=== PATIENT | female | born 1980 | race African-American/Black ===

== ENCOUNTER 2017-12-02 18:08 | Inpatient (IN) | payer MEDICAID, SELFPAY ==
[2017-12-02 18:09] VITALS: BP 152/89; PULSE 109; RESP 16; TEMP 36.9; O2SAT 100; BMI 22.1
--- NOTE | 2017-12-02 18:29 | CT_ITS ---
STUDY: CT ABDOMEN AND PELVIS WITH CONTRAST REASON FOR EXAM: Female, 37 years old. Abdominal pain RADIATION DOSAGE (If Supplied By Facility): CTDIvol = ( 10.06 ) mGy, DLP = ( 657.31 ) mGycm TECHNIQUE: Transaxial images were obtained from the dome of the diaphragm to the symphysis pubis without oral contrast. 100ML ml of Isovue 300 contrast was administered. Sagittal and coronal images were reconstructed. Individualized dose optimization techniques were used for this CT. COMPARISON: None. FINDINGS: The visualized lung bases are unremarkable. The visualized portions of the heart are within normal limits. Normal liver. Normal gallbladder and extrahepatic biliary system. Normal spleen. Normal pancreas. Normal bilateral adrenal glands. Normal right kidney. Normal left kidney. Normal visualized stomach. Normal small intestine. There is thickening of the colonic wall and stranding of the mesentery. There is a 4 cm peripherally enhancing fluid collection which may represent an abscess or giant diverticulum. There is stranding of the mesenteric fat consistent with acute inflammation. There is no free air or free fluid. Oral contrast is noted within the distal small bowel and right colon. The appendix is visualized and appears normal. Normal abdominal aorta. Normal inferior vena cava. Normal retroperitoneum. Normal urinary bladder. There is an IUD in the uterus. There is a small umbilical hernia containing fat. Normal osseous structures. CT/Abdomen/Pelvis WITH Contrast IMPRESSION: Probable Pericolonic abscess with acute inflammatory changes. Prompt surgical consultation recommended. N.B. : The above information has been verbally conveyed by Mario Romero MD to , Covering Physician, on 12/02/2017 20:52:44 (ET). Electronically Signed: Mario Romero MD at 20:45 EDT , Service support , N.B. : The above information has been verbally conveyed by Mario Romero MD to , Covering Physician, on 12/02/2017 20:52:44 (ET).
[2017-12-02] MEDS: 0.9% Normal Saline 1,000 ML 125 ML IV (18:50)
[2017-12-02 18:59] LABS: Absolute Lymphocyte Count 2.36 X10^3/ul (0.83-4.51); Absolute Neutrophil Count 11.7 X10^3/uL (2.0-7.7); Basophil# 0.02 X10^3/uL; Basophil% 0.1 % (0-1); Eosinophil# 0.22 X10^3/uL; Eosinophils% 1.4 % (0-5); Hematocrit 37.7 % (37-47); Hemoglobin 12.4 g/dl (12.0-15.0); Lymphocyte # 2.36 X10^3/ul (4.0); Lymphocyte % 15.5 % (19-41); Mean Corp Hgb Conc 32.9 g/gl (32-36); Mean Corpuscular Hgb 31.3 pg (27.0-32.0); Mean Corpuscular Volume 95.2 fL (81-99); Mean Platelet Vol. 9.5 fl (6.2-12.0); Monocyte# 0.95 X10^3/uL; Monocyte% 6.2 % (0-10); Neutrophil % 76.7 % (47-70); POSITIVE COUNT NO; POSITIVE DIFFERENTIAL NO; POSITIVE MORPHOLOGY NO; Platelet Count 337 K/mm3 (150-450); RBC Distribution Width CV 12.1 % (11.6-14.6); RBC Distribution Width SD 41.9 fl (35.1-43.9); Red Blood Count 3.96 M/mm3 (4.2-5.4); White Blood Count 15.3 K/mm3 (4.4-11.0)
[2017-12-02 19:41] LABS: Color, Urine Yellow (Yellow); Glucose, Dipstick Normal (Normal); Leukocyte Esterase-Dipstick 25 /ul (Negative); Nitrite-Dipstick Negative (Negative); Occult Blood-Urine 25 /ul (Negative); Protein-Dipstick 15 mg/dl (Negative); Specific Gravity, Urine 1.015 (1.002-1.030); Urine Bilirubin Dipstick Negative (Negative); Urine Clarity Clear (Clear); Urine Urobilinogen 1 mg/dl (Normal)
[2017-12-02 19:50] LABS: Lactic Acid 0.7 mmol/L (0.4-2.0)
[2017-12-02 19:52] LABS: ALB/GLOB Ratio 0.6 RATIO (0.9-2.4); AST(SGOT) 16 U/L (15-37); Alanine Aminotransfer ALT/SGPT 22 U/L (13-56); Albumin, Serum 3.1 g/dL (3.2-5.0); Alkaline Phosphatase 95 U/L (45-117); Anion Gap 8 (5-15); BUN 9 mg/dL (7-18); BUN/Creat Ratio 12.1 RATIO (10-20); Calcium,Total 8.8 mg/dL (8.5-10.1); Chloride 104 mmol/L (98-107); Creatinine, Serum 0.74 mg/dL (0.55-1.02); EST Glomerular Filtration Rate 93 mL/min (>60); Est Glom Filt Rate - Afr Amer 112 mL/min (>60); Estimated Creatinine Clearance 106.67 ml/min; Glucose 91 mg/dL (74-106); Protein, Total 8.1 g/dL (6.4-8.2); Sodium Level 137 mmol/L (136-145)
[2017-12-02 19:55] LABS: Pregnancy, Serum, hCG Quali. NEGATIVE Negative (0-9 Nonpreg)
[2017-12-02 20:07] LABS: Ketone-Dipstick 150 mg/dl (Negative)
[2017-12-02 20:11] VITALS: BP 128/88; PULSE 99; O2SAT 99
[2017-12-02 20:12] LABS: Red Blood Cells-Urine 0-5 SEEN /hpf (0-5); Squamous Epithelial Cells - UA 0-5 SEEN /hpf (5-10); White Blood Cells 0-5 SEEN /hpf (0-5)
[2017-12-02 20:13] LABS: Bacteria RARE /hpf (None Seen); Mucous, Urine RARE /hpf (<or=2+)
[2017-12-02] MEDS: Ciprofloxacin 400 MG/200 ML BAG 200 MG IV (20:57)
[2017-12-02 21:24] VITALS: BP 115/78; PULSE 70; RESP 18; TEMP 37.8; O2SAT 97
--- NOTE | 2017-12-02 21:53 | ED.DCSUM_ITS ---
- ER Visit Summary Date of Service: 12/02/17 Chief Complaint: [Abdominal pain] History of Present Illness: The patient is a 37 F [presents the emergency department complaint of abdominal pain that started 2 weeks ago. Patient states the pain was intermittent initially in the lower abdomen. The pain is been more continuous over last week or so. Patient had decreased appetite. She denies any blood in her stool or black tarry stool. Patient complains of pain with defecation. Patient states that she is having to use laxatives to have bowel movement. She denies night sweats or unexpected weight loss. She has had subjective fever at home but has not actually taken her temperature. Patient was seen at urgent care today and was told that her temperature was 101. There is no family history of colon cancer. There is no family history of inflammatory bowel disease.] Physical Examination: [HEENT-PERRLA, EOMI. Cranial nerves II through XII grossly intact. TMs clear. Mucous membranes moist. No adenopathy. Cardiovascular-regular rate and rhythm without murmur or ectopy Lungs-clear to auscultation, chest wall stable without crepitus or subcu emphysema Abdomen-normoactive bowel sounds, soft. Patient has tenderness over the suprapubic region with guarding. There is no rebound, rigidity, or perineal signs. Extremities-intact ?4, normal range of motion, normal pulses, atraumatic] Test Results: [CBC with differential obtained showed white blood cell count of 15.3, hemoglobin 12, hematocrit 30, platelets 337. Chemistries unremarkable. LFTs were normal. HCG was negative. CT scan of the abdomen pelvis with IV and p.o. contrast showed a 4 cm complex fluid collection question abscess or large diverticulum in the area of the sigmoid colon.] Emergency Department Course and Treatment: [Patient was treated with Cipro and Flagyl IV. Patient refused pain medication.] Treatment Plan: [Patient case was discussed with Dr. Niki Norton who was on-call for general surgery who will admit patient.] Disposition: [Admit] Impression: [Abdominal pain Complex fluid collection sigmoid colon, suspect diverticular abscess] This note was generated with [employer] dictation software. It may contain incorrect words, spelling, and punctuation that were not noted in review of the chart prior to signing ED Disposition - Plan for ED Patient: Disposition: Acute Care Hospital [facility] Chief Complaint: Abd Pain
[2017-12-02 21:54] VITALS: BMI 22.4
[2017-12-02 22:03] VITALS: BP 125/88; PULSE 89; RESP 16; TEMP 38.6; O2SAT 100
[2017-12-03] MEDS: Morphine 4 MG/ML Syringe IV ×4 (02:18→22:02)
[2017-12-03 02:24] VITALS: BP 122/83; PULSE 84; RESP 16; TEMP 37.4; O2SAT 98
[2017-12-03] MEDS: 0.9% Normal Saline 1,000 ML 125 ML IV ×3 (04:24→22:02)
[2017-12-03 07:11] LABS: Absolute Lymphocyte Count 1.82 X10^3/ul (0.83-4.51); Absolute Neutrophil Count 12.8 X10^3/uL (2.0-7.7); Basophil# 0.01 X10^3/uL; Basophil% 0.1 % (0-1); Eosinophil# 0.18 X10^3/uL; Eosinophils% 1.1 % (0-5); Hematocrit 35.7 % (37-47); Hemoglobin 11.8 g/dl (12.0-15.0); Lymphocyte # 1.82 X10^3/ul (4.0); Lymphocyte % 11.6 % (19-41); Mean Corp Hgb Conc 33.1 g/gl (32-36); Mean Corpuscular Hgb 31.5 pg (27.0-32.0); Mean Corpuscular Volume 95.2 fL (81-99); Mean Platelet Vol. 9.3 fl (6.2-12.0); Monocyte# 0.89 X10^3/uL; Monocyte% 5.7 % (0-10); Neutrophil % 81.4 % (47-70); Platelet Count 317 K/mm3 (150-450); RBC Distribution Width SD 41.6 fl (35.1-43.9); Red Blood Count 3.75 M/mm3 (4.2-5.4); White Blood Count 15.7 K/mm3 (4.4-11.0)
[2017-12-03 07:14] LABS: POSITIVE COUNT NO; POSITIVE DIFFERENTIAL NO; POSITIVE MORPHOLOGY NO
[2017-12-03 08:24] VITALS: BP 117/84; PULSE 80; RESP 16; TEMP 37.3; O2SAT 100
[2017-12-03] MEDS: 0.9% NaCl Peripheral Flush Adult/Peds IV ×2 (09:59→11:13)
--- NOTE | 2017-12-03 10:03 | HP.PCM_ITS ---
History and Physical Date of Admission: 12/02/17 Chief Complaint: abdominal pain History of Present Illness: 37 y/o pleasant BF presents with abdominal pain for two weeks duration, however , in the last week, it has significantly worsened. In the last week, with anorexia and feeling subjective low grade temperatures. Denies vaginal discharge. Denies blood in urine, denies burning with urination. States that she is constipated. She is sexually active with one partner. Has not had a menstrual period in 18 years, has Mirena in place, denies vaginal discharge, has had history of chlamydia with recurrence and GC but no recurrence Anorexia for about a week. No bowel movement for about 2 days. Past Medical History: denies major medical illnesses such as hypertension or diabetes Past Surgical History: colposcopy Medications: cyclobenzaprine naproxen Allergies: Has no known drug allergies, allergic to bee stings Social history: TOB use < 1ppd trying to quit, has tried Chantix, etc Review of Systems: General - has had low grade subjective temperature elevation, anorexia for about a week Cardiovascular denies chest pain, denies history of heart attack Pulmonary denies shortness of breath, denies coughing up blood Gastrointestinal has had intermittent epigastric pain in the past seen by GI - UGI/US all normal, denies blood in stools, no bowel movement for about 2 days Neurological denies numbness/weakness of extremities, denies seizures, denies history of stroke Genitourinary denies blood in urine, has not had a menstrual period in 18 years, has Mirena in place, denies vaginal discharge, has had history of chlamydia with recurrence and GC but no recurrence Hematological denies spontaneous/prolonged bleeding Skin denies open non-healing wounds Musculoskeletal has intermittent back pain with right sided sciatica Endocrine denies diabetes Psychological denies suicidal ideation, denies hallucinations Physical examination: Vital signs Temp 100F then 101.4F presently 99.1F HR 80 RR 16 BP 117/ 84 Ht: 5'10 General WD/WN BF in no apparent distress, alert and oriented, not septic appearing HEENT Normocephalic. EOM intact with sclera clear and no icterus noted. Neck is supple with no jugular venous distention noted. Trachea is midline. Lungs clear to auscultation. normal breath sounds in all lung cowart. No rales/rhonchi/wheezing noted. No labored breathing noted, such as retractions. . Heart normal S1 and S2 auscultated. No rubs/clicks/murmurs noted. Normal size and location by auscultation. Abdomen soft but generalized tenderness - mostly in the lower abdomen and right and left iliac fossa. hypoactive bowel sounds. Extremities no calf tenderness noted. No pitting edema noted. Genitourinary/Rectal vaginal examination reveals positive chandelier's sign Skin normal skin integrity. Neurological no focal deficits noted. Psychological normal affect, patient is calm and appropriate Impression: pelvic infection elevated WBC abdominal pain - bilateral iliac fossa Discussion/Plan: I have discussed the above with the patient. I suspect that this is a pelvic infection. I have reviewed the CT scan myself and see no major pathology with the colon, albeit there is much inflammation in the area, however, there is no demonstrated diverticula and also the amount of inflammation is mostly surrounding the female organs. The patient does have a history of chlamydia with recurrence and GC. She is sexually active - she states with one partner. Will treat empirically for PID. Treatment with Cefotetan, but I will also add Flagyl. Continue observation. Clear liquid diet, encourage ambulation. I have answered all questions to the patient?s satisfaction and the patient has no further questions.
--- NOTE | 2017-12-03 12:50 | CASEMGMT ---
ARIANNA REAL Face to Face with patient for initial transition planning/care coordination assessment. RN FARHAN introduced self and role at [facility]. Patient lying in bed, alert and oriented. Patient willing to participate in assessment and is able to answer all questions appropriately. Care providers, pharmacy, and demographics verified. Patient lives at home with her 3 teenage children. Patient is independent at home. Pt wishes to discharge home, denies need for home health at this time. Pt states she has no further needs or concerns at this time. CM to follow for discharge planning needs that may arise. Disposition Plan: Patient to discharge home with family support and follow-up plans in place.
[2017-12-03 14:20] VITALS: BP 121/84; PULSE 86; RESP 16; TEMP 38; O2SAT 98
--- NOTE | 2017-12-03 15:46 | NURSING ---
Patient is hungry for a sandwhich despite education given on clear liquid diet. This nurse talked and spoke with Dr. Norton, whom wants patient to remain on clear liquid diet.
[2017-12-03] MEDS: Acetaminophen 325 MG Tablet 650 MG PO (17:03)
[2017-12-03 18:54] VITALS: TEMP 36.9
[2017-12-03 22:14] VITALS: BP 123/84; PULSE 73; RESP 16; TEMP 37.5; O2SAT 100
[2017-12-04 04:09] VITALS: BP 123/81; PULSE 91; RESP 18; TEMP 38; O2SAT 94
--- NOTE | 2017-12-04 04:12 | NURSING ---
Pt has temp 100.4 orally, does not want tylenol, states feels fine.
[2017-12-04 05:53] LABS: Absolute Lymphocyte Count 1.64 X10^3/ul (0.83-4.51); Absolute Neutrophil Count 12.9 X10^3/uL (2.0-7.7); Basophil# 0.02 X10^3/uL; Basophil% 0.1 % (0-1); Eosinophil# 0.24 X10^3/uL; Eosinophils% 1.5 % (0-5); Hematocrit 35.1 % (37-47); Hemoglobin 11.8 g/dl (12.0-15.0); Lymphocyte # 1.64 X10^3/ul (4.0); Lymphocyte % 10.4 % (19-41); Mean Corp Hgb Conc 33.6 g/gl (32-36); Mean Corpuscular Hgb 32.1 pg (27.0-32.0); Mean Corpuscular Volume 95.4 fL (81-99); Mean Platelet Vol. 9.5 fl (6.2-12.0); Monocyte# 0.99 X10^3/uL; Monocyte% 6.3 % (0-10); Neutrophil # 12.87 X10^3/uL (2.7-7.7); Neutrophil % 81.5 % (47-70); Platelet Count 318 K/mm3 (150-450); RBC Distribution Width CV 11.8 % (11.6-14.6); RBC Distribution Width SD 40.3 fl (35.1-43.9); Red Blood Count 3.68 M/mm3 (4.2-5.4); White Blood Count 15.8 K/mm3 (4.4-11.0)
[2017-12-04 06:01] LABS: POSITIVE COUNT NO; POSITIVE DIFFERENTIAL NO; POSITIVE MORPHOLOGY NO
[2017-12-04] MEDS: Morphine 4 MG/ML Syringe IV ×2 (06:07→22:39)
[2017-12-04] MEDS: 0.9% Normal Saline 1,000 ML 125 ML IV ×2 (09:20→18:39)
[2017-12-04 09:21] VITALS: BP 116/77; PULSE 78; RESP 16; TEMP 36.9; O2SAT 100
--- NOTE | 2017-12-04 10:09 | PCM.PN.SRG ---
Subjective: Patient states that she feels slightly less pain Has not had flatus, concerned about bowel movement going to cause pain denies pain with urination Is tearful this morning due to hospitalization - Physical Exam General: Alert, Oriented x3 Oral: Moist Mucosa Neck: Supple Lungs: Normal air movement Abdomen: Soft - generalized tenderness but primarily in lower abdomen/suprapubic area Vital Signs Temp Pulse Resp BP Pulse Ox 98.5 F 78 16 116/77 100 12/04/17 09:21 12/04/17 09:21 12/04/17 09:21 12/04/17 09:21 12/04/17 09:21 Oxygen Delivery Method Room Air Intake and Output for Last 24 Hours 12/02/17 12/03/17 12/04/17 23:59 23:59 23:59 Intake Total 1966 / 3862 976 / 976 Output Total 1900 / 3500 600 / 600 Balance 66 / 362 376 / 376 Laboratory Tests Past 24 Hrs 12/04/17 05:33 WBC 15.8 H RBC 3.68 L Hgb 11.8 L Hct 35.1 L MCV 95.4 MCH 32.1 H MCHC 33.6 RDW 11.8 RDW Differential 40.3 Plt Count 318 MPV 9.5 Immature Gran % (Auto) 0.200 Neut % (Auto) 81.5 H Lymph % (Auto) 10.4 L [place] % (Auto) 6.3 Eos % (Auto) 1.5 Baso % (Auto) 0.1 Absolute Neuts (auto) 12.9 H Absolute Lymphs (auto) 1.64 Total Counted Not Reportable Medical Necessity - Tobacco Use Smoking Status: Current every day smoker Assessment/Plan Impression: pelvic infection Discussion/Plan: if this were diverticulitis (which I do not believe that it is), the cefotetan/flagyl antibiotic regimen should have shown some clinical improvement (lower WBC) Patient's temperature curve is decreasing, however, WBC remains elevated Will therefore d/c cefotetan and broaden spectrum (treatment for PID in literature recommend ofloxacin or moxifloxacin which we do not have in the formulary) will therefore start levaquin Maintain patient on clear liquid diet, in possible anticipation of surgical intervention which at this point is not required patient is very concerned about lack of bowel movement - given that she hasn't eaten in the past week, I have assured her that this is not a major problem, I suspect that she has an ileus due to her pelvic infection - I have offered to give her dulcolax but she defers this, I will place on prn order
--- NOTE | 2017-12-04 10:19 | PN.SURG_ITS ---
Subjective: Patient states that she feels slightly less pain Has not had flatus, concerned about bowel movement going to cause pain denies pain with urination Is tearful this morning due to hospitalization - Physical Exam General: Alert, Oriented x3 Oral: Moist Mucosa Neck: Supple Lungs: Normal air movement Abdomen: Soft - generalized tenderness but primarily in lower abdomen/ suprapubic area Vital Signs Temp Pulse Resp BP Pulse Ox 98.5 F 78 16 116/77 100 12/04/17 09:21 12/04/17 09:21 12/04/17 09:21 12/04/17 09:21 12/04/17 09:21 Oxygen Delivery Method Room Air Intake and Output for Last 24 Hours 12/02/17 12/03/17 12/04/17 23:59 23:59 23:59 Intake Total 1966 / 3862 976 / 976 Output Total 1900 / 3500 600 / 600 Balance 66 / 362 376 / 376 Laboratory Tests Past 24 Hrs 12/04/17 05:33 WBC 15.8 H RBC 3.68 L Hgb 11.8 L Hct 35.1 L MCV 95.4 MCH 32.1 H MCHC 33.6 RDW 11.8 RDW Differential 40.3 Plt Count 318 MPV 9.5 Immature Gran % (Auto) 0.200 Neut % (Auto) 81.5 H Lymph % (Auto) 10.4 L [place] % (Auto) 6.3 Eos % (Auto) 1.5 Baso % (Auto) 0.1 Absolute Neuts (auto) 12.9 H Absolute Lymphs (auto) 1.64 Total Counted Not Reportable Medical Necessity - Tobacco Use Smoking Status: Current every day smoker Assessment/Plan Impression: pelvic infection Discussion/Plan: if this were diverticulitis (which I do not believe that it is), the cefotetan/ flagyl antibiotic regimen should have shown some clinical improvement (lower WBC ) Patient's temperature curve is decreasing, however, WBC remains elevated Will therefore d/c cefotetan and broaden spectrum (treatment for PID in literature recommend ofloxacin or moxifloxacin which we do not have in the formulary) will therefore start levaquin Maintain patient on clear liquid diet, in possible anticipation of surgical intervention which at this point is not required patient is very concerned about lack of bowel movement - given that she hasn't eaten in the past week, I have assured her that this is not a major problem, I suspect that she has an ileus due to her pelvic infection - I have offered to give her dulcolax but she defers this, I will place on prn order
[2017-12-04 15:20] VITALS: BP 117/79; PULSE 75; RESP 16; TEMP 37.4; O2SAT 99
[2017-12-04] MEDS: levoFLOXacin IV 500 MG/100 ML BAG 100 MG IV (20:20)
[2017-12-04 20:25] VITALS: BP 126/91; PULSE 84; RESP 18; TEMP 37.5; O2SAT 100
[2017-12-04 22:49] VITALS: BP 136/86; PULSE 84; RESP 16; TEMP 37.6; O2SAT 96
[2017-12-05 03:23] VITALS: BP 115/76; PULSE 89; RESP 16; TEMP 37.5; O2SAT 99
[2017-12-05] MEDS: 0.9% Normal Saline 1,000 ML 125 ML IV ×2 (05:14→16:59)
[2017-12-05 06:05] LABS: Absolute Lymphocyte Count 1.46 X10^3/ul (0.83-4.51); Absolute Neutrophil Count 13.6 X10^3/uL (2.0-7.7); Basophil# 0.02 X10^3/uL; Basophil% 0.1 % (0-1); Eosinophil# 0.19 X10^3/uL; Eosinophils% 1.2 % (0-5); Hematocrit 34.5 % (37-47); Hemoglobin 11.7 g/dl (12.0-15.0); Lymphocyte # 1.46 X10^3/ul (4.0); Lymphocyte % 8.9 % (19-41); Mean Corp Hgb Conc 33.9 g/gl (32-36); Mean Corpuscular Hgb 32.2 pg (27.0-32.0); Mean Platelet Vol. 9.4 fl (6.2-12.0); Monocyte# 1.06 X10^3/uL; Monocyte% 6.5 % (0-10); Neutrophil # 13.61 X10^3/uL (2.7-7.7); Platelet Count 341 K/mm3 (150-450); RBC Distribution Width CV 11.7 % (11.6-14.6); RBC Distribution Width SD 39.8 fl (35.1-43.9); Red Blood Count 3.63 M/mm3 (4.2-5.4); White Blood Count 16.4 K/mm3 (4.4-11.0)
[2017-12-05 06:20] LABS: POSITIVE COUNT NO; POSITIVE DIFFERENTIAL NO; POSITIVE MORPHOLOGY NO
--- NOTE | 2017-12-05 07:29 | CT_ITS ---
STUDY: CT ABDOMEN AND PELVIS WITH CONTRAST REASON FOR EXAM: Female, 37 years old. Pelvic infection and constipation. Diffuse abdominal pain. Elevated white cell count. RADIATION DOSAGE (If Supplied By Facility): CTDIvol = ( 10.22 ) mGy, DLP = ( 545.09 ) mGycm TECHNIQUE: Transaxial images were obtained from the dome of the diaphragm to the symphysis pubis with oral contrast. 100cc ml of Isovue 300 contrast was administered. Sagittal and coronal images were reconstructed. Individualized dose optimization techniques were used for this CT. COMPARISON: Comparison is made with prior study dated December 02, 2017. FINDINGS: Minimal pleural thickening. Mild degree of bibasilar atelectasis. The visualized portions of the heart are within normal limits. Normal liver. Normal gallbladder and extrahepatic biliary system. Normal spleen. Normal pancreas. Normal bilateral adrenal glands. Normal right kidney. Normal left kidney. Normal visualized stomach. Normal small intestine. Once again, there is mild thickening of the colonic wall involving the descending colon as well as the sigmoid colon. Diffuse thickening of the sigmoid colon as well as the rectum. The appendix is visualized and appears normal. Normal abdominal aorta. Normal inferior vena cava. Normal retroperitoneum. Normal urinary bladder. In the cul-de-sac. There is a persistent 5.1 cm x 4.1 cm fluid collection with thickened wall. This may represent an abscess. This is unchanged. IUD is seen within the uterus. Minimal amount of fluid is seen in the pelvis. There is a small umbilical hernia containing fat. Normal osseous structures. CT/Abdomen/Pelvis WITH Contrast IMPRESSION: Essentially stable examination. Electronically Signed: Ja Cummins MD at 13:04 EDT Tel [phone], Service support ,
--- NOTE | 2017-12-05 07:42 | PCM.PN.SRG ---
Subjective: Patient had complaint of increased abdominal pain - states that it was generalized - upper abdomen also, felt like severe crampy pain, felt also like severe contractions of uterus, also rectal pain, also lower back pain, also pain radiating down legs this morning, patient feels much improved, has minimal abdominal pain, has not passed flatus, no bowel movements has nausea but no emesis Had initially felt hungry but presently does not feel hungry - Physical Exam General: Alert, Oriented x3 Oral: Moist Mucosa Neck: Supple Lungs: Normal air movement Abdomen: Soft - same as previous examination Vital Signs Temp Pulse Resp BP Pulse Ox 99.5 F H 89 16 115/76 99 12/05/17 03:23 12/05/17 03:23 12/05/17 03:23 12/05/17 03:23 12/05/17 03:23 Oxygen Delivery Method Room Air Weight: 68.719 kg Body Mass Index (BMI) 22.4 Intake and Output for Last 24 Hours 12/03/17 12/04/17 12/05/17 23:59 23:59 23:59 Intake Total 3862 / 3862 1665 / 1665 1421 / 1421 Output Total 3500 / 3500 1100 / 1100 1150 / 1150 Balance 362 / 362 565 / 565 271 / 271 Laboratory Tests Past 24 Hrs 12/05/17 05:45 WBC 16.4 H RBC 3.63 L Hgb 11.7 L Hct 34.5 L MCV 95.0 MCH 32.2 H MCHC 33.9 RDW 11.7 RDW Differential 39.8 Plt Count 341 MPV 9.4 Immature Gran % (Auto) 0.300 Neut % (Auto) 83.0 H Lymph % (Auto) 8.9 L [place] % (Auto) 6.5 Eos % (Auto) 1.2 Baso % (Auto) 0.1 Absolute Neuts (auto) 13.6 H Absolute Lymphs (auto) 1.46 Total Counted Not Reportable Medical Necessity - Tobacco Use Smoking Status: Current every day smoker Assessment/Plan Impression: pelvic infection Discussion/Plan: temperature curve is decreasing, however elevated WBC to over 16K this morning will repeat CT scan - may have formed abscess that may require drainage may require CT guided percutaneous drainage versus laparoscopic drainage - will await CT scan results maintain levaquin and flagyl
[2017-12-05 08:05] VITALS: BP 142/92; PULSE 108; RESP 18; TEMP 36.8; O2SAT 99
[2017-12-05] MEDS: levoFLOXacin IV 500 MG/100 ML BAG 100 MG IV (09:31)
[2017-12-05] MEDS: 0.9% NaCl Peripheral Flush Adult/Peds IV (11:11)
[2017-12-05 15:48] VITALS: BP 124/85; PULSE 78; RESP 18; TEMP 37.4; O2SAT 100
--- NOTE | 2017-12-05 17:34 | CON.PCM_ITS ---
Reason for Consult Date of Consultation: 12/05/17 Reason for Consultation: PID History of Present Illness: The patient is a 37 year old female who started having lower pelvic pain 2 weeks ago. It gradually worsened to the point she went to urgent care and then to the emergency room. She was admitted to general surgery for pelvic inflammatory disease and pelvic abscess. She has a Mirena intrauterine device in place. She states this is her second 1. She does not have a menses with this in place. She has had 2 previous vaginal deliveries, one swanson and one twin delivery. She does not desire future fertility. She has had some increased vaginal discharge last couple days and a small amount of spotting which is unusual for her. She denies any fevers or chills. She is sexually active with one partner. She denies previous history of pelvic infections or pelvic inflammatory disease. [] Past Medical History Allergies No Known Allergies Allergy (Verified 12/02/17 18:09) Home Medications: Ambulatory Orders Medication Instructions Recorded Cyclobenzaprine HCl 5 mg PO TID PRN 12/02/17 Naproxen [Naprosyn] 500 mg PO BID PRN 12/02/17 Surgical History: no surgical history DIRECTOR WEIGHTS AND MEASURES History: No pertinent DIRECTOR WEIGHTS AND MEASURES history Smoking Status: Current every day smoker Review of Systems Constitutional: Reports: Malaise, Fatigue, - - Decreased appetite. Denies: Chills Cardiovascular: Denies: Chest Pain, Edema Respiratory: Denies: Cough, Shortness of Breath Gastrointestinal: Reports: Abdominal Pain, Constipation - No bowel movement since admission, BMs before this normal for her, Nausea. Denies: Diarrhea, Melena, Vomiting Genitourinary: Denies: Dysuria, Frequency, Hematuria Gynecological: Reports: Vaginal discharge. Denies: Excessively long or heavy periods, Vaginal bleeding, Vaginal itching Skin: Denies: Rash Hematologic/ Lymphatic: Denies: Easy Bruising, Easy Bleeding, Hx of blood clot - Physical Exam General: Alert, Cooperative, No apparent distress Cardiovascular: Regular rate Abdomen: Distended - moderately,, Guarding, Rebound Tenderness - mildly, Tender - moderately Extremities: No edema Skin: No rashes Neurological: Cranial nerves II-XII grossly intact Psych/Mental Status: Normal Affect, Appropriate Vital Signs Temp Pulse Resp BP Pulse Ox 99.4 F H 78 18 124/85 H 100 12/05/17 15:48 12/05/17 15:48 12/05/17 15:48 12/05/17 15:48 12/05/17 15:48 Oxygen Delivery Method Room Air Weight: 68.719 kg Body Mass Index (BMI) 22.4 Intake and Output for Last 24 Hours 12/03/17 12/04/17 12/05/17 23:59 23:59 23:59 Intake Total 3862 / 3862 1665 / 1665 2371 / 2371 Output Total 3500 / 3500 1100 / 1100 2350 / 2350 Balance 362 / 362 565 / 565 Laboratory Tests Past 24 Hrs 12/05/17 05:45 WBC 16.4 H RBC 3.63 L Hgb 11.7 L Hct 34.5 L MCV 95.0 MCH 32.2 H MCHC 33.9 RDW 11.7 RDW Differential 39.8 Plt Count 341 MPV 9.4 Immature Gran % (Auto) 0.300 Neut % (Auto) 83.0 H Lymph % (Auto) 8.9 L [place] % (Auto) 6.5 Eos % (Auto) 1.2 Baso % (Auto) 0.1 Absolute Neuts (auto) 13.6 H Absolute Lymphs (auto) 1.46 Total Counted Not Reportable Assessment/Plan Hospital day #3 pelvic inflammatory disease with pelvic abscess. Mirena IUD in place. At this point, I feel that the patient would most likely benefit more from a agnostic laparoscopy with bilateral salpingectomy and evacuation of pelvic abscess and peritoneal irrigation than a colpotomy incision in the posterior cul -de-sac and attempted drainage of the abscess via that route. Agree with current antibiotic regimen. Okay for regular diet tonight and then n.p.o. at midnight in anticipation of surgery. Risks benefits and alternatives and personnel involved with surgery discussed with the patient, her questions were answered to her satisfaction she desires to proceed. Depending on scheduling of the surgery tomorrow, myself or Dr. Thomas or potentially both will be involved with the surgery. Patient states understanding and agreement, her questions were answered to her satisfaction and she desires to proceed. My findings and recommendations were discussed in person with Dr. Norton
[2017-12-05] MEDS: Bisacodyl 10 MG Suppository RECTAL (18:23)
[2017-12-05] MEDS: Polyethylene Glycol 3350 17 GM PACKET PO (18:23)
[2017-12-05 21:36] VITALS: BP 120/82; PULSE 79; RESP 16; TEMP 37.3; O2SAT 99
[2017-12-05 21:57] LABS: Internal QC Validated? YES +Cl - CLEAR BKGD; Pregnancy, Urine Negative Negative
[2017-12-05] MEDS: HYDROcodone Bitartrate/Apap 5/325 Tablet PO (22:16)
[2017-12-06] VITALS (13 sets, daily range): BP systolic 93–122; BP diastolic 55–83; PULSE 70–84; RESP 16–18; TEMP 36.7–37.2; O2SAT 94–100; BMI 22.4
--- NOTE | 2017-12-06 | FALS_PTH ---
PATIENT: GRISELDA GARCIA LOC: [facility] U#:[id number] AGE/SX: 37/F ROOM: [facility]321 RE12/02/[address]: Dr. Niki Norton MD : 1980 BED: 1 DIS: 12/08/2017 SPEC #: [id number] RECD: 12/06/17 14:43 STATUS: SOCRATES REQ #: [id number] ALFREDITO: 12/06/17 00:[address]: Niki Norton DEPT: SURGICAL PATHOLOGY RECD BY: Ricardo Vidal ENTERED: 12/06/17 14:43 SP TYPE: FALL TUBES OTHR DR: Dr. Patrick Allen MD Tissues: Fallopian tube Procedures: Surgery Specimen Level II HEADER OPERATION: Diagnostic laparoscopy, removal of IUD, bilateral salpingectomy PRE-OP DIAGNOSIS: Pelvic abscess TISSUE SUBMITTED: Bilateral fallopian tubes MICROSCOPIC DIAGNOSIS Right and left fallopian tubes, bilateral salpingectomy: Benign paratubal cyst. AM:latanya 12/09/17 MICROSCOPIC DESCRIPTION Slides are reviewed. GROSS DESCRIPTION Received is one container labeled with the patient's name and designated bilateral fallopian tubes. The specimen consists of two fallopian tubes with an average length of 5.5 cm and has an average diameter of 0.8 cm. Both fallopian tubes have normal fimbriated ends. No mass lesions are identified. One fallopian tube is inked in black ink. Customer Experience Leader sections are submitted in two cassettes as follows: 1 - one fallopian tube, 2 - the other fallopian tube. / AM:latanya 12/08/17 TC:5 CPT: 40691 x2
[2017-12-06] MEDS: 0.9% Normal Saline 1,000 ML 125 ML IV ×2 (03:54→17:59)
[2017-12-06 06:47] LABS: Hematocrit 33.5 % (37-47); Mean Corp Hgb Conc 32.8 g/gl (32-36); Mean Corpuscular Hgb 30.8 pg (27.0-32.0); Mean Corpuscular Volume 93.8 fL (81-99); Mean Platelet Vol. 9.3 fl (6.2-12.0); Platelet Count 353 K/mm3 (150-450); RBC Distribution Width CV 12.2 % (11.6-14.6); RBC Distribution Width SD 41.4 fl (35.1-43.9); Red Blood Count 3.57 M/mm3 (4.2-5.4); White Blood Count 12.1 K/mm3 (4.4-11.0)
[2017-12-06 06:50] LABS: Anion Gap 11 (5-15); BUN 3 mg/dL (7-18); Calcium,Total 8.2 mg/dL (8.5-10.1); Chloride 108 mmol/L (98-107); EST Glomerular Filtration Rate 146 mL/min (>60); Est Glom Filt Rate - Afr Amer 177 mL/min (>60); Estimated Creatinine Clearance 157.87 ml/min; Glucose 84 mg/dL (74-106); Potassium 3.5 mmol/L (3.5-5.1); Sodium Level 140 mmol/L (136-145)
[2017-12-06 06:52] LABS: Scan Indicated on CBC? Y/N NO
--- NOTE | 2017-12-06 08:46 | PCM.PN.OB ---
Subjective: Pain slightly improved this morning. Still not much of an appetite. Had small amounts of regular diet last night for supper. Slight nausea no vomiting overnight. Denies fevers or chills. Denies shortness of breath, chest pain, palpitations. - Physical Exam General: Alert, Cooperative, No apparent distress Abdomen: Soft, Non-Distended, Tender - Moderately, no rebound or guarding Vital Signs Temp Pulse Resp BP Pulse Ox 98.1 F 81 18 122/83 H 98 12/06/17 07:26 12/06/17 07:26 12/06/17 07:26 12/06/17 07:26 12/06/17 07:26 Oxygen Delivery Method Room Air Weight: 68.719 kg Body Mass Index (BMI) 22.4 Intake and Output for Last 24 Hours 12/04/17 12/05/17 12/06/17 23:59 23:59 23:59 Intake Total 1665 / 1665 3244 / 3244 1395 / 1395 Output Total 1100 / 1100 3350 / 3350 300 / 300 Balance 565 / 565 -106 / -106 1095 / 1095 Laboratory Tests Past 24 Hrs 12/05/17 12/06/17 12/06/17 21:30 06:17 06:17 WBC 12.1 H RBC 3.57 L Hgb 11.0 L Hct 33.5 L MCV 93.8 MCH 30.8 MCHC 32.8 RDW 12.2 RDW Differential 41.4 Plt Count 353 MPV 9.3 Sodium 140 Potassium 3.5 Chloride 108 H Carbon Dioxide 21.0 Anion Gap 11 BUN 3 L Creatinine 0.50 L Estim Creat Clear Calc 157.87 Est GFR (MDRD) Af Amer 177 Est GFR (MDRD) Non-Af 146 BUN/Creatinine Ratio 6.0 L Glucose 84 Calcium 8.2 L Urine Test Negative Medical Necessity - Tobacco Use Smoking Status: Current every day smoker Assessment/Plan Hospital day #5 with pelvic inflammatory disease and pelvic abscess. Mirena IUD remains in place. I discussed with her at this point, being that she still requiring IV pain medications and her pain is limiting her activity and appetite, I would recommend surgical drainage of her pelvic abscess. She has been consented for laparoscopic bilateral salpingectomy and drainage of pelvic abscess with Mirena removal. Would recommend doing pelvic abscess cultures as well as gonorrhea and chlamydia testing as this does not seem to have been done upon admission. Patient understands possible need for laparotomy and removal of other diseased or infected tissue such as ovaries or uterus. She understands this is only possibility and will attempt to avoid this if possible. She understands that removal of the tubes will make her permanently unable to bear children. In addition, we discussed the pelvic inflammatory usually starts as a sexually transmitted disease and recommend that her partner be treated before they have intercourse again. He remains afebrile and her white blood cell count is trending down. Her hgb is stable. Would be okay to transfer the patient to [facility] service postoperatively. Likely home on PO antibiotics in approx 48 hrs if remains afebrile postop.
[2017-12-06] MEDS: levoFLOXacin IV 500 MG/100 ML BAG 100 MG IV (09:18)
[2017-12-06] MEDS: Bupivacaine Mpf 0.5% 30 ML VIAL (12:21)
--- NOTE | 2017-12-06 13:03 | OP.PCM_ITS ---
Operative Report Date of Procedure: 12/06/17 Surgeon: Dr. Trini Aguilar-Thomas Mobile Nurse: LULI Lopes Preoperative diagnosis: Pelvic Abscess, IUD removal Procedure performed: Diagnostic laparoscopy, IUD removal, collection of cervical cultures, Laparoscopic bilateral salpingectomy Postoperative diagnosis: same complications: none Estimated blood loss: 5 cc Drains: none Specimens collected: Bilateral tubes, vaginal cultures Findings: Uterus sounded to approximately 9cm, cervical cultures obtained, IUD removed. Tubes appeared normal, Left ovary with small simple appearing cysts, Right ovary normal. Pelvic mass in CDS-adherent to culdesac- unable to see if mass is separate from bowel but near uterosacral ligaments the mass feels more firm in nature. the bowel appears enlarged and edematous. Operative note: After informed consent was obtained patient was taken to the operating room she was placed in supine position she was given anesthesia. She was then placed in the [facility] stirrups and she was prepped and draped in normal sterile fashion. Bladder was drained prior to the start of procedure approximately 100 cc of clear yellow urine was expelled. At this time attention was turned to the vaginal portion where weighted speculum placed at posterior fornix vagina single-tooth tenaculum was used to gently grasp the internal the cervix. uterus was gently sounded to approximately 9cm. Cervical cultures obtained and IUD grasped with Ring clamp and removed intact without difficulty. Uterine manipulator was placed without difficulty. Legs then placed in parallel with the abdomen the tenaculum and the weighted speculum were removed. 2 towel clamps were placed superior to umbilicus. After Marcaine was injected superior to umbilicus a small incision was made and a 5 mm trocar was placed under direct visualization. CO2 gas was used to insufflate the intra-abdominal cavity. Upon inspection tubes and ovaries normal- left tube did have small simple appearing cysts. mass in culdesac unable to get good visualization due to adhesions - bowel appears enlarged. At this time then the LLQ and RLQ port was placed again Marcaine was injected small incision was made a knife and the 5 mm trocar was placed. At this time then tubes were traced back to the fimbriated ends. Ligasure was used to coagulate and ligate along mesosalpinx bilaterally until tubes removed completely. Good hemostasis was appreciated. I called General Surgeon Dr. Norton to notify her of findings as she is admitting physician. She will come to evaluate and try to drain pelvic abscess. At this time my portion of the procedure was completed without complication. Will await Dr. Norton for her opinion in proceeding with surgical intervention vs transport to tertiary care center for Percutaneous drainage. Dr Norton now present for case - she will decide further intervention. Dr. Norton is aware of uterine manipulator in place and will remove at end of case.
--- NOTE | 2017-12-06 13:41 | PCM.OPRPT ---
Report of Operation Date of Procedure: 12/06/17 Pre-Operative Diagnosis: pelvic abscess in cul de sac Post-Operative Diagnosis: same Surgery/Procedure Performed:: drainage of pelvic abscess, placement of intraabdominal drain Description of Surgical Findings:: dense large bowel adhesed to upper vagina, blunt dissection was able to enter the cul de sac abscess cavity and 10mm flat drain placed in the cavity patient relations coordinator: John Avelar Type of Anesthesia:: General Anesthesiologist: Kirk Forrester Specimen's removed: purulent fluid of pelvic abscess Estimated Blood Loss (mL): < 1 ml Fluids Replaced: see other procedure note\anesthesia note Description of Procedure: Asked by Dr. Thomas for assistance with patient who is known to me. She presented with pelvic infection and found by CT scan to have pelvic abscess in the cul de sac between the vagina and rectum. Adhesions in this area were very dense due to the infection/inflammation. I was asked to assess patient intraoperatively for drainage of the abscess and placement of intraabdominal drain. Laparoscopic bilateral salpingectomy was already performed by Dr. Thomas. Trocar sites already in place. Blunt dissection was done between the plane between the rectum and posterior uterine wall. This was done carefully to avoid injury to any of these structures. There was no plane between these structures due to the infection/inflammation. Blunt dissection was continued slowly until purulent fluid emanated. This was completely suctioned out. Pictures were taken of the abscessed cavity. A 10mm flat drain was placed into this cavity after the cavity was vigorously irrigated until clear. Cultures of the purulent fluid were sent to the laboratory for analysis. The drain was brought out via the left lower quadrant trocar site and sutured to the skin using nylon suture. The CO2 pneumoperitoneum was released and all trocars removed intact. The tenaculum was then removed. The patient tolerated the procedure well. She was extubated and brought to the Recovery Room in stable condition. - Complications none noted - Admit VTE Documentation VTE Present on Admission: Yes VTE Mechan Device Prophylaxis: SCD's
[2017-12-06] MEDS: Bacitracin 500 UNITS/GM PACKET (13:46)
--- NOTE | 2017-12-06 13:50 | OP.PCM_ITS ---
Report of Operation Date of Procedure: 12/06/17 Pre-Operative Diagnosis: pelvic abscess in cul de sac Post-Operative Diagnosis: same Surgery/Procedure Performed:: drainage of pelvic abscess, placement of intraabdominal drain Description of Surgical Findings:: dense large bowel adhesed to upper vagina, blunt dissection was able to enter the cul de sac abscess cavity and 10mm flat drain placed in the cavity landscape horticulture instructor: John Avelar Type of Anesthesia:: General Anesthesiologist: Kirk Forrester Specimen's removed: purulent fluid of pelvic abscess Estimated Blood Loss (mL): < 1 ml Fluids Replaced: see other procedure note\anesthesia note Description of Procedure: Asked by Dr. Thomas for assistance with patient who is known to me. She presented with pelvic infection and found by CT scan to have pelvic abscess in the cul de sac between the vagina and rectum. Adhesions in this area were very dense due to the infection/inflammation. I was asked to assess patient intraoperatively for drainage of the abscess and placement of intraabdominal drain. Laparoscopic bilateral salpingectomy was already performed by Dr. Thomas. Trocar sites already in place. Blunt dissection was done between the plane between the rectum and posterior uterine wall. This was done carefully to avoid injury to any of these structures. There was no plane between these structures due to the infection/ inflammation. Blunt dissection was continued slowly until purulent fluid emanated. This was completely suctioned out. Pictures were taken of the abscessed cavity. A 10mm flat drain was placed into this cavity after the cavity was vigorously irrigated until clear. Cultures of the purulent fluid were sent to the laboratory for analysis. The drain was brought out via the left lower quadrant trocar site and sutured to the skin using nylon suture. The CO2 pneumoperitoneum was released and all trocars removed intact. The tenaculum was then removed. The patient tolerated the procedure well. She was extubated and brought to the Recovery Room in stable condition. - Complications none noted - Admit VTE Documentation VTE Present on Admission: Yes VTE Mechan Device Prophylaxis: SCD's
[2017-12-06] MEDS: HYDROcodone Bitartrate/Apap 5/325 Tablet PO (16:22)
[2017-12-06 16:52] LABS: Chlamydia Trachomatis by PCR Negative (Negative); Neisserai gonorrhoeae by PCR Negative (Negative); Probe Check PASS; Sample Adequacy Control PASS; Specimen Processing Control PASS
[2017-12-06] MEDS: Morphine 4 MG/ML Syringe IV (17:47)
[2017-12-07] MEDS: 0.9% Normal Saline 1,000 ML 125 ML IV ×2 (00:07→10:22)
[2017-12-07] MEDS: Ketorolac 15 MG/ML Vial IV ×2 (00:07→06:24)
[2017-12-07 02:00] VITALS: BP 108/67; PULSE 68; RESP 18; TEMP 37.2; O2SAT 97
[2017-12-07] MEDS: Morphine 4 MG/ML Syringe IV (04:22)
[2017-12-07 08:00] VITALS: BP 99/65; PULSE 63; RESP 18; TEMP 36.7; O2SAT 98
[2017-12-07 08:41] VITALS: RESP 18; O2SAT 98
--- NOTE | 2017-12-07 10:06 | PCM.PN.OB ---
Subjective: Pain mild when at rest. More difficult to move. Feels like she needs assistance. No N/V. elizabeth. small amount regular diet - Physical Exam General: Alert, Cooperative, No apparent distress Abdomen: Soft, Distended - midly, sofly, Tender - appropriately Extremities: No edema Skin: Incision - bandages clean,d ry and intact Vital Signs Temp Pulse Resp BP Pulse Ox 98.0 F 63 18 99/65 98 12/07/17 08:00 12/07/17 08:00 12/07/17 08:41 12/07/17 08:00 12/07/17 08:41 Oxygen Delivery Method Room Air Weight: 68.492 kg Body Mass Index (BMI) 22.4 Intake and Output for Last 24 Hours 12/05/17 12/06/17 12/07/17 23:59 23:59 23:59 Intake Total 3244 / 3244 3444 / 3444 1824 / 1824 Output Total 3350 / 3350 1440 / 1440 1630 / 1630 Balance -106 / -106 2003 / 2003 194 / 194 Microbiology Past 72 Hours 12/06/17 Unknown Gram Stain - Final Genital vaginal Laboratory Tests Past 24 Hrs 12/06/17 Unknown Chlam trachomat DNA PCR Negative N.gonorrhoeae DNA (PCR) Negative Medical Necessity - Tobacco Use Smoking Status: Current every day smoker Assessment/Plan POD#1 s/p laprascopic bilateral salpingectomy and drainage of pelvic abscess from PID ambulate saline lock IV cont. IV antibiotics recheck CBC likely home tomorrow on oral antibiotics
[2017-12-07] MEDS: HYDROcodone Bitartrate/Apap 5/325 Tablet PO ×2 (10:22→16:54)
[2017-12-07] MEDS: levoFLOXacin IV 500 MG/100 ML BAG 100 MG IV (10:22)
[2017-12-07] MEDS: Polyethylene Glycol 3350 17 GM PACKET PO (10:23)
--- NOTE | 2017-12-07 11:01 | NURSING ---
pt up ad rob in [facility] w/ ANGEL
[2017-12-07 13:58] VITALS: BP 118/58; PULSE 71; RESP 18; TEMP 36.7; O2SAT 100
--- NOTE | 2017-12-07 13:59 | PCM.PN.SRG ---
Subjective: Patient still with pain, but improved, has been ambulating somewhat - Physical Exam General: Alert Oral: Moist Mucosa Neck: Supple Abdomen: Soft, - - FEDERICO output is serosanguinous, no purulent material Vital Signs Temp Pulse Resp BP Pulse Ox 98.0 F 63 18 99/65 98 12/07/17 08:00 12/07/17 08:00 12/07/17 08:41 12/07/17 08:00 12/07/17 08:41 Oxygen Delivery Method Room Air Weight: 68.492 kg Body Mass Index (BMI) 22.4 Intake and Output for Last 24 Hours 12/05/17 12/06/17 12/07/17 23:59 23:59 23:59 Intake Total 3244 / 3244 3444 / 3444 1824 / 1824 Output Total 3350 / 3350 1440 / 1440 1630 / 1630 Balance -106 / -106 2003 194 / 194 Microbiology Past 72 Hours 12/06/17 Unknown Gram Stain - Final Aspirate - Abdominal Wound Culture - Preliminary Streptococcus group C 12/06/17 Unknown Gram Stain - Final Genital vaginal Wound Culture - Preliminary No growth-Final to follow Laboratory Tests Past 24 Hrs 12/06/17 Unknown Chlam trachomat DNA PCR Negative N.gonorrhoeae DNA (PCR) Negative Medical Necessity - Tobacco Use Smoking Status: Current every day smoker Assessment/Plan Impression: POD#1 s/p drainage of pelvic abscess, bilateral salpingectomy Discussion/Plan: as per gynecology patient can follow up with me as outpatient in my clinic for drain management
[2017-12-07] MEDS: Ketorolac 30 MG/ML Syringe IM ×2 (14:00→21:01)
--- NOTE | 2017-12-07 14:01 | PCM.DC.GS ---
Discharge Diet: No Restrictions Discharge Activity: Return to Normal Activity, May Not Shower Lifting Restrictions: no lifting greater than 20 pounds until further notice Call your doctor if your incision/area has: Continuous Slow Oozing, Foul Smelling Discharge Call your doctor if you observe: Fever of 101 or Higher Additional Dressing/Incision Instructions:: Leave dressings in place. Sponge bathe only Allergies/Adverse Reactions: Allergies No Known Allergies Allergy (Verified 12/02/17 18:09) Medications to take at Discharge Cyclobenzaprine HCl 5 mg PO TID PRN 12/02/17 Naproxen [Naprosyn] 500 mg PO BID PRN 12/02/17 Primary Care Physician: Patrick Allen MD [Primary Care Provider] - Test Results: Please Follow Up With: Niki Norton MD - call When: to be seen on Tuesday, please call for time, thank you
[2017-12-07 16:00] VITALS: BP 98/65; PULSE 60; RESP 18; TEMP 36.7; O2SAT 100
[2017-12-07 16:36] LABS: Absolute Neutrophil Count 6.4 X10^3/uL (2.0-7.7); Basophil# 0.03 X10^3/uL; Basophil% 0.3 % (0-1); Eosinophil# 0.28 X10^3/uL; Eosinophils% 2.9 % (0-5); Hematocrit 32.9 % (37-47); Hemoglobin 10.9 g/dl (12.0-15.0); Lymphocyte % 22.1 % (19-41); Mean Corp Hgb Conc 33.1 g/gl (32-36); Mean Corpuscular Hgb 31.2 pg (27.0-32.0); Mean Corpuscular Volume 94.3 fL (81-99); Mean Platelet Vol. 9.4 fl (6.2-12.0); Monocyte# 0.61 X10^3/uL; Monocyte% 6.4 % (0-10); Neutrophil # 6.44 X10^3/uL (2.7-7.7); Neutrophil % 67.8 % (47-70); Platelet Count 409 K/mm3 (150-450); RBC Distribution Width CV 12.6 % (11.6-14.6); RBC Distribution Width SD 43.1 fl (35.1-43.9); Red Blood Count 3.49 M/mm3 (4.2-5.4); White Blood Count 9.5 K/mm3 (4.4-11.0)
[2017-12-07 16:40] LABS: POSITIVE COUNT NO; POSITIVE DIFFERENTIAL NO; POSITIVE MORPHOLOGY NO
--- NOTE | 2017-12-07 17:22 | NURSING ---
60 ml's sang. thin liquid drained from j/p drain
[2017-12-07 21:20] VITALS: BP 122/80; PULSE 72; RESP 16; TEMP 36.6; O2SAT 100
[2017-12-08] MEDS: HYDROcodone Bitartrate/Apap 5/325 Tablet PO ×2 (02:41→13:02)
[2017-12-08 03:00] VITALS: BP 110/83; PULSE 87; RESP 16; TEMP 37; O2SAT 94
[2017-12-08] MEDS: proMETHazine 25 MG/ML Syringe 12.5 MG IV (03:19)
[2017-12-08] MEDS: Morphine 4 MG/ML Syringe IV (03:20)
--- NOTE | 2017-12-08 03:39 | NURSING ---
Pt. with nausea and vomitting after taking Horatio. Nausea also from severe abd pain/cramping. Phenergan given and new order for Morphine 4mg Q1hr prn obtained from Dr. Norton. Pt. now resting more comfortably.
[2017-12-08] MEDS: Ketorolac 30 MG/ML Syringe IM (05:31)
[2017-12-08 09:03] VITALS: BP 101/69; PULSE 72; RESP 16; TEMP 36.8; O2SAT 98
[2017-12-08] MEDS: Polyethylene Glycol 3350 17 GM PACKET PO (09:09)
[2017-12-08] MEDS: levoFLOXacin IV 500 MG/100 ML BAG 100 MG IV (09:09)
[2017-12-08] MEDS: Senna/Docusate Sodium 1 Tablet PO (09:13)
--- NOTE | 2017-12-08 12:35 | DCINST_ITS ---
Discharge Diet: No Restrictions Discharge Activity: Return to Normal Activity, May Not Shower Return to work on:: 12/13/17 May shower in (days): 0 May resume sexual activity in: 3 weeks Call your doctor if your incision/area has: Continuous Slow Oozing, Foul Smelling Discharge Call your doctor if you observe: Fever of 101 or Higher Cleanse incision/area with: Soap & Water Additional Dressing/Incision Instructions:: Leave dressings in place. Sponge bathe only Allergies/Adverse Reactions: Allergies No Known Allergies Allergy (Verified 12/02/17 18:09) Medications to take at Discharge Cyclobenzaprine HCl 5 mg PO TID PRN 12/02/17 Docusate Sodium [Colace] 100 mg PO BID PRN PRN #60 cap 12/08/17 Doxycycline 100 mg PO BID #30 cap 12/08/17 Hydrocodone/Acetaminophen [[place] 5-325 Tablet] 1 - 2 each PO Q8 PRN 7 Days #30 tablet 12/08/17 Metronidazole [Flagyl] 500 mg PO TID #45 tab 12/08/17 Naproxen [Naprosyn] 500 mg PO TID #50 tab 12/08/17 Simethicone [Gas Relief] 125 mg PO Q6H PRN PRN #30 tab.chew 12/08/17 The following prescriptions were given: Simethicone [Gas Relief] 125 mg PO Q6H PRN PRN #30 tab.chew PRN Reason: Gas Docusate Sodium [Colace] 100 mg PO BID PRN PRN #60 cap PRN Reason: Constipation Hydrocodone/Acetaminophen [[place] 5-325 Tablet] 1 - 2 each PO Q8 PRN 7 Days #30 tablet PRN Reason: Severe Pain (-03/15) Doxycycline 100 mg PO BID #30 cap Metronidazole [Flagyl] 500 mg PO TID #45 tab Naproxen [Naprosyn] 500 mg PO TID #50 tab Primary Care Physician: Patrick Allen MD [Primary Care Provider] - Test Results: Please Follow Up With: Trini Coto MD - [phone] When: [address] or as needed[address] Dr. Norton on Tuesday, call same number to schedule
[2017-12-08 15:32] VITALS: BP 106/70; PULSE 68; RESP 16; TEMP 37; O2SAT 99
--- NOTE | 2017-12-08 18:41 | PCM.PN.OB ---
Subjective: late entry for patient bobby at 1215 pm. Pain improved, some gas pain. +flatus, small bm. No signif. vaginal bleeding. No dysuria. elizabeth. regular diet. - Physical Exam General: Alert, Cooperative, No apparent distress Abdomen: Soft, Distended - mildly, softly, Tender - appropriately Extremities: No edema Skin: Incision - clean, dry and intact FEDERICO w/ yellow thin fluid present Vital Signs Temp Pulse Resp BP Pulse Ox 98.6 F 68 16 106/70 99 12/08/17 15:32 12/08/17 15:32 12/08/17 15:32 12/08/17 15:32 12/08/17 15:32 Oxygen Delivery Method Room Air Weight: 68.492 kg Body Mass Index (BMI) 22.4 Intake and Output for Last 24 Hours 12/06/17 12/07/17 12/08/17 23:59 23:59 23:59 Intake Total 3444 / 3444 1824 / 1824 2300 / 2300 Output Total 1440 / 1440 1630 / 1630 1235 / 1235 Balance 2003 / 2003 194 / 194 1065 / 1065 Microbiology Past 72 Hours 12/06/17 Unknown Gram Stain - Final Genital vaginal Wound Culture - Preliminary Gram positive dave Anaerobic Culture - Preliminary Checking for anaerobes, further studies to follow. 12/06/17 Unknown Gram Stain - Final Aspirate - Abdominal Wound Culture - Final Streptococcus group C Anaerobic Culture - Preliminary Checking for anaerobes, further studies to follow. Medical Necessity - Tobacco Use Smoking Status: Current every day smoker Assessment/Plan HD #7, POD#2 w/ PID/pelvic abscess s/p laparoscopic drainage on 12/06/17 doing well d/w her postop expectations and limitations home w/ po antibiotics f/u in 1 week in our office prescriptions given f/u w/ Dr. Norton on 12/11 per her d/c instructions cultures reviewed
--- NOTE | 2017-12-08 18:52 | PCM.DC.SUM ---
Discharge Date and Diagnosis Date of Admission: 12/02/17 Date of Discharge: 12/08/17 Hospital Course and Treatment Operations: - - laparoscopic bilateral salpingectomy, evacuation of pelvic abscess on 12/06/17 Summary of Care Provided: The patient is a 37 year old female was admitted to general surgery for pelvic pain and abscess suspected to be from diverticular origin originally. She had increasing pain over approximately 2 weeks. She came to the emergency room on 12/02/2017 for evaluation and was subsequently admitted. She is sexually active with one current partner. It was subsequently determined she had acute pelvic inflammatory disease w/ a pelvic abscess of the posterior cul de sac. She had a Mirena intrauterine device in place. She remained on IV antibiotics from 12/02 to 12/05/2017 for the PID without significant clinical improvement. She remained afebrile but her white blood cell count was trending up and her pain was not decreasing. She had a repeat CAT scan that showed that the pelvic abscess was not decreasing significantly in size. Dr. Norton from general surgery then consulted me and I evaluated the patient and discussed with her that likely surgical exploration and drainage would be recommended. The patient did not desire future fertility and she had significant tubal edema as well. I discussed with the patient that I would recommend removal of the IUD and removal of her tubes and any other diseased tissue. Dr. Thomas took the patient to the OR on 12/06/2017 and was unable to access the abscess due to extensive adhesions to the colon. She removed the IUD, did cultures and performed a bilateral salpingectomy. Dr. Norton was able to drain the abscess and place a FEDERICO drain. On POD#2, 12/08/17, the patient remained afebrile. Her pain was decreasing. Her white blood cell count was trending down. She was discharged home on Augmentin and Flagyl. She is to follow-up in our office within 1 week. She is to follow-up with general surgery on 12/11/2014 for likely FEDERICO drain removal. She was given another discharge prescriptions for pain control and symptomatic measures. Postop instructions and restrictions were reviewed with the patient.. Discharge Diet: No Restrictions Discharge Activity: Return to Normal Activity, May Not Shower Return to work on:: 12/13/17 May shower in (days): 0 May resume sexual activity in: 3 weeks Call your doctor if your incision/area has: Continuous Slow Oozing, Foul Smelling Discharge Call your doctor if you observe: Fever of 101 or Higher Cleanse incision/area with: Soap & Water Additional Dressing/Incision Instructions:: Leave dressings in place. Sponge bathe only Home Medications: Medications to take at Discharge Cyclobenzaprine HCl 5 mg PO TID PRN 12/02/17 Amoxicillin/Potassium Clav [Augmentin 500-125 Tablet] 2 ea PO BID #60 tab 12/08/17 Docusate Sodium [Colace] 100 mg PO BID PRN PRN #60 cap 12/08/17 Hydrocodone/Acetaminophen [[place] 5-325 Tablet] 1 - 2 each PO Q8 PRN 7 Days #30 tablet 12/08/17 Metronidazole [Flagyl] 500 mg PO TID #45 tab 12/08/17 Naproxen [Naprosyn] 500 mg PO TID #50 tab 12/08/17 Simethicone [Gas Relief] 125 mg PO Q6H PRN PRN #30 tab.chew 12/08/17 Following Prescrptions Were Given to Patient: Simethicone [Gas Relief] 125 mg PO Q6H PRN PRN #30 tab.chew PRN Reason: Gas Docusate Sodium [Colace] 100 mg PO BID PRN PRN #60 cap PRN Reason: Constipation Hydrocodone/Acetaminophen [[place] 5-325 Tablet] 1 - 2 each PO Q8 PRN 7 Days #30 tablet PRN Reason: Severe Pain (6-10/10) Amoxicillin/Potassium Clav [Augmentin 500-125 Tablet] 2 ea PO BID #60 tab Metronidazole [Flagyl] 500 mg PO TID #45 tab Naproxen [Naprosyn] 500 mg PO TID #50 tab Primary Care Physician: Patrick Allen MD [Primary Care Provider] - Please Follow Up With: Trini Coto MD - [phone] When: [address] or as needed[address] Dr. Norton on Tuesday, call same number to schedule Medical Necessity - Tobacco Use Smoking Status: Current every day smoker Meaningful Use Info Meaningful Use Diagnoses (Choose all that apply): None applicable
== END 2017-12-08 15:57 | disposition home or self-care (01) | DRG 359 ==
LOC: ED 19:16 → MS3 21:36
PROVIDERS: Anesthesiology; Obstetrics & Gynecology; Admitting Provider Surgery; Emergency Provider Emergency Medicine; Family Provider Family Medicine; PCP Family Medicine; Visit Provider Surgery
PROC: 0UT74ZZ Resection of Bilateral Fallopian Tubes, Percutaneous Endoscopic Approach (ICD-10-PCS; CPT 49320; principal; 2017-12-06 11:45)
PROC: 0W9J40Z Drainage of Pelvic Cavity with Drainage Device, Percutaneous Endoscopic Approach (ICD-10-PCS; 2017-12-06 11:45)
DX: N73.0 Acute parametritis and pelvic cellulitis (principal); F17.200 Nicotine dependence, unspecified, uncomplicated; Z30.432 Encounter for removal of intrauterine contraceptive device; N83.8 Other noninflammatory disorders of ovary, fallopian tube and broad ligament
CPT/HCPCS: 36415; 74177; 80048; 80053; 81001; 81025; 83605; 84703; 85025; 85027; 87070; 87075; 87076; 87077; 87205; 87491; 87591; 88302; 99284; 99406; J7030; Q9967; A4216; J0744; J2405